=== PATIENT | male | born 1990 | race Caucasian/White ===

== ENCOUNTER 2021-05-17 02:40 | Emergency (ER) | payer OTHER ==
[~2021-05-17] VITALS: Ht 182.9 cm; Wt 87.5 kg
[2021-05-17 03:18] VITALS: BP 131/74
--- NOTE | 2021-05-17 03:23 | NUR ---
PT TO LOBBY TO A/W EVALUATION
[2021-05-17] MEDS ORDERED: ONDANSETRON 4 MG ODT PO ONE (03:30)
[2021-05-17] MEDS ORDERED: ONDANSETRON 4 MG ODT ONE (03:32)
--- NOTE | 2021-05-17 03:38 | NUR ---
COVID SWAB COLECTED
[2021-05-17 03:45] LABS: BASOPHILS % (AUTO) 0.5 % (0.0-2.0); EOSINOPHILS # (AUTO) 0.1 K/uL (0-0.4); EOSINOPHILS % (AUTO) 0.8 % (0.0-4.0); HEMATOCRIT 47.6 % (36-52); HEMOGLOBIN 16.2 g/dL (12.0-18.0); LYMPHOCYTES # (AUTO) 1.5 K/uL (2.0-11.5); LYMPHOCYTES % (AUTO) 17.4 % (20.5-51.1); MEAN CORPUSCULAR HEMOGLOBIN 29 pg (27-31); MEAN CORPUSCULAR HGB CONC 34 g/dL (33-37); MEAN CORPUSCULAR VOLUME 84.9 fL (80-94); MONOCYTES # (AUTO) 0.7 K/uL (0.8-1.0); MONOCYTES % (AUTO) 7.7 % (1.7-9.3); NEUTROPHILS # (AUTO) 6.3 K/uL (1.8-7.7); NEUTROPHILS % (AUTO) 73.6 % (42.2-75.2); PLATELET COUNT (AUTO) 297 K/uL (140-450); RED BLOOD CELL COUNT(AUTO) 5.61 MIL/uL (4.20-6.10); RED CELL DISTRIBUTION WIDTH 13.1 % (11.6-13.7); WHITE BLOOD COUNT (AUTO) 8.5 K/uL (4.8-10.8)
[2021-05-17 04:19] LABS: ALBUMIN 4.7 g/dL (3.4-5.0); ANION GAP 9.7 (8-16); CARBON DIOXIDE 30.8 mmol/L (21-32); CREATININE 0.8 mg/dL (0.6-1.3); MAGNESIUM 2.2 mg/dL (1.8-2.4); PHOSPHORUS 3.4 mg/dL (2.5-4.9); POTASSIUM 4.5 mmol/L (3.5-5.1); TOTAL BILIRUBIN 0.4 mg/dL (0.0-1.0)
[2021-05-17] MEDS ORDERED: ONDA-188 SL (05:00)
== END 2021-05-17 05:05 | disposition home or self-care (01) ==
LOC: MED 02:40
DX: R11.2 Nausea with vomiting, unspecified (principal); Z20.822 Contact with and (suspected) exposure to COVID-19; R19.7 Diarrhea, unspecified; R10.9 Unspecified abdominal pain; Z79.899 Other long term (current) drug therapy
CPT/HCPCS: 36415; 80053; 83690; 83735; 84100; 85025; 87426; 99283; Q0162

== ENCOUNTER 2022-05-20 16:57 | Emergency (ER) | payer OTHER ==
[~2022-05-20] VITALS: Ht 188 cm; Wt 95.3 kg
[~2022-05-20 16:57] MED LIST: ONDA-188 SL
[2022-05-20 17:28] VITALS: BP 123/76
[2022-05-20] MEDS ORDERED: CYCL-711 PO (18:40)
[2022-05-20] MEDS ORDERED: IBUP-2213 PO (18:40)
== END 2022-05-20 18:55 | disposition home or self-care (01) ==
LOC: MED 16:57
DX: S16.1XXA Strain of muscle, fascia and tendon at neck level, initial encounter (principal); S09.90XA Unspecified injury of head, initial encounter; W18.30XA Fall on same level, unspecified, initial encounter; Y93.89 Activity, other specified; Y92.89 Other specified places as the place of occurrence of the external cause; Y99.8 Other external cause status
CPT/HCPCS: 99281